=== PATIENT | female | born 1960 | race Caucasian/White ===

== ENCOUNTER 2017-10-11 01:24 | Emergency (ER) | payer BC ==
[~2017-10-11] VITALS: Ht 165.1 cm; Wt 54.4 kg
--- NOTE | 2017-10-11 01:26 | NUR ---
to bed 1 bib paramedics c/o syncope while have a bm. pt aaox4 no acute distress noted, resp even and unlabored. 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 place pt on cardiac monitoring, continuous pox. pending er md green. 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 call light wihtin reach. will continue to monitor pt closely.
--- NOTE | 2017-10-11 01:33 | NUR ---
caprice segal at bedside to peter ramirez.
--- NOTE | 2017-10-11 01:41 | NUR ---
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
[2017-10-11] MEDS ORDERED: ONDANSETRON HCL/PF 4 MG/2 ML VIAL ONE ×2 (01:44→03:03)
[2017-10-11 01:49] LABS: BASOPHILS % (AUTO) 0.5 % (0.0-2.0); EOSINOPHILS # (AUTO) 0.1 /CMM (0.0-0.7); EOSINOPHILS % (AUTO) 2.5 % (0.0-6.0); HEMATOCRIT 43 % (33-45); HEMOGLOBIN 14.4 g/dL (11.5-14.8); LYMPHOCYTES # (AUTO) 2.2 /CMM (0.8-4.8); LYMPHOCYTES % (AUTO) 53.6 % (20.0-44.0); MEAN CORPUSCULAR HEMOGLOBIN 30 PG (26.0-33.0); MEAN CORPUSCULAR HGB CONC 34 g/dl (31.0-36.0); MEAN CORPUSCULAR VOLUME 91 fL (82-100); MONOCYTES # (AUTO) 0.3 /CMM (0.1-1.30); MONOCYTES % (AUTO) 8.4 % (2.0-12.0); NEUTROPHILS # (AUTO) 1.4 /CMM (1.8-8.9); PLATELET COUNT (AUTO) 243 /CMM (150-450); RDW COEFFICIENT OF VARIATION 12.7 (11.5-15.0); RED BLOOD CELL COUNT(AUTO) 4.73 MIL/uL (4.0-5.2); WHITE BLOOD COUNT (AUTO) 4.1 K/uL (4.3-11.0)
[2017-10-11 02:00] LABS: CALCIUM, SERUM 9.3 mg/dL (8.5-10.1); CARBON DIOXIDE 25 mmol/L (21-32); CHLORIDE 103 mmol/L (98-107); CREATININE 0.8 mg/dL (0.6-1.3); GLUCOSE 114 mg/dL (74-106); POTASSIUM 3.4 mmol/L (3.5-5.1); SODIUM SERUM 139 mmol/L (136-145); UREA NITROGEN, BLOOD 11 mg/dL (7-18)
[2017-10-11] MEDS ORDERED: ONDANSETRON HCL/PF 4 MG/2 ML VIAL IV ONE ×2 (02:00→03:00)
[2017-10-11] MEDS ORDERED: IV NS 0.9% 1,000 ML BAG IV ONE (02:00)
--- NOTE | 2017-10-11 02:04 | NUR ---
pt transported to radiology for ct head.
[2017-10-11 02:06] LABS: ALANINE AMINOTRANSFERASE 24 U/L (12-78); ALBUMIN 3.8 g/dL (3.4-5.0); ALKALINE PHOSPHATASE 64 U/L (46-116); ASPARTATE AMINOTRANSFERASE 15 U/L (15-37); BILIRUBIN,DIRECT 0.2 mg/dL (0.0-0.2); BILIRUBIN,TOTAL 1.7 mg/dL (0.2-1.0)
[2017-10-11 02:08] LABS: TROPONIN I < 0.017 ng/mL (0.00-0.056)
[2017-10-11 02:57] LABS: INR 1.03 (0.87-1.13); PROTHROMBIN TIME 10.7 SECS (9.5-12.7)
[2017-10-11 03:33] VITALS: BP 113/62
--- NOTE | 2017-10-11 03:33 | NUR ---
IV removed. Catheter intact and site benign. Pressure and 4x4 applied to site. No bleeding noted. Patient discharged to home in stable condition. Written and verbal after care instructions given. Patient verbalizes understanding of instruction. ambulatory with a steady gait. pt s/o at bedside to take pt home.
== END 2017-10-11 03:34 | disposition home or self-care (01) ==
LOC: ER 01:26
DX: R55 Syncope and collapse (principal)
CPT/HCPCS: 36415; 70450; 71010; 80048; 80076; 84484; 85025; 85730; 93005; 96361; 96374; 96376; 99285; A4606; J2405 ×2; J7030; Z7610